=== PATIENT | male | born 1995 | race African-American/Black ===

== ENCOUNTER 2018-10-15 23:52 | Observation (INO) | payer SELFPAY ==
[2018-10-16] MEDS ORDERED: Sodium Chloride 0.9% 250 ML 250 ML ONE (00:22)
[2018-10-16] MEDS ORDERED: cefTRIAXone\\ROCEPHIN 1 GM VIAL ONE (00:22)
[2018-10-16] MEDS ORDERED: methylPREDNISolone Sod Succ/PF 125 MG/2 ML VIAL ONE (00:22)
[2018-10-16] MEDS ORDERED: Sodium Chloride 0.9% 1,000 ML ONE (00:22)
[2018-10-16] MEDS ORDERED: Azithromycin 500 MG VIAL ONE (00:22)
[2018-10-16] MEDS ORDERED: Magnesium Sulfate 2 GM/NS 0.9% 50 ML BAG ONE (00:22)
[2018-10-16 00:27] LABS: #Basophils 0.1 thou/uL (0.0-0.2); #Eosinphils 0.6 thou/uL (0.0-0.7); #Lymphocytes 1.5 thou/uL (1.20-3.40); #Monocytes 1.4 thou/uL (0.11-0.59); #Neutrophils 9.1 thou/uL (1.40-6.50); %Basophils 0.4 % (0.0-1.0); %Eosinophils 4.6 % (0.0-10.0); %Monocytes 10.9 % (0.0-10.0); %Neutrophils 72.2 % (42.0-75.0); Hemoglobin 15.5 g/dL (14.0-18.0); Mean Corpuscular HGB CONC 30.4 g/dL (32.0-36.0); Mean Corpuscular Hemoglobin 27.2 pg (27.0-31.0); Mean Corpuscular Volume 89.5 fL (78.0-98.0); Mean Platelet Volume 9.1 fL (7.4-10.4); Platelet Count 183 thou/uL (130-400); RBC Distribution Width 12.4 % (11.5-14.5); White Blood Cell (WBC) Count 12.6 thou/uL (4.8-10.8)
[2018-10-16 00:43] LABS: Anion Gap 16 mmol/L (10-20); BUN (Urea Nitrogen) 7 mg/dL (8.9-20.6); Calc. Creatinine Clearance 0 mL/min (70-130); Carbon Dioxide 24 mmol/L (22-29); Chloride 106 mmol/L (98-107); Estimated GFR-MDRD 86; Glucose 108 mg/dL (70-105); Potassium 4.2 mmol/L (3.5-5.1); Sodium 142 mmol/L (136-145)
[2018-10-16] MEDS ORDERED: Oseltamivir 75 MG CAP ONE (01:08)
[2018-10-16 02:09] VITALS: BMI 23.9
[2018-10-16] MEDS ORDERED: Albuterol Sulfate 2.5 mg/3 ml Neb NEB PRN ×2 (02:18→06:58)
[2018-10-16 03:48] LABS: Amphetamine Not Detected (NotDetected); Barbiturates Screen Not Detected (NotDetected); Benzodiazepine Screen Not Detected (NotDetected); Cocaine Metabolite Screen Not Detected (NotDetected); Medtox Control Line Valid? VALID (VALID); Methadone Not Detected (NotDetected); Methamphetamine Not Detected (NotDetected); Opiate Screen Not Detected (NotDetected); Oxycodone Screen Not Detected (NotDetected); Phencyclidine (PCP) Not Detected (NotDetected); THC/Cannabinoid Screen Detected (NotDetected); Tricyclic Screen Not Detected (NotDetected)
[2018-10-16 04:11] LABS: Lactic Acid 2.9 mmol/L (0.5-2.2)
[2018-10-16] MEDS: methylPREDNISolone Sod Succ/PF 125 MG/2 ML VIAL IVP SCH ×2 (05:14→11:27)
--- NOTE | 2018-10-16 08:18 | RAD ---
PORTABLE CHEST: DATE: 10/16/2018. PROVIDED CLINICAL HISTORY: Upper respiratory infection. FINDINGS: No comparisons. Cardiac and mediastinal silhouette is within normal limits. Lungs appear clear. No pleural fluid or pneumothorax apparent. IMPRESSION: No evidence for an acute cardiopulmonary process. POS: OFF
[2018-10-16] MEDS ORDERED: Oseltamivir 75 MG CAP PO SCH ×2 (09:00)
[2018-10-16 11:33] VITALS: BP 132/69; TEMP 97.9
[2018-10-16] MEDS ORDERED: Ventolin HFA Inhaler 60 PUFF INHALER INH PRN (13:15)
--- NOTE | 2018-10-16 18:48 | SS ---
DATE OF ADMISSION: 10/16/2018 DATE OF DISCHARGE: 10/16/2018 PRINCIPAL DIAGNOSIS: Asthmatic bronchitis. SECONDARY DIAGNOSIS: Transient hypoxemia which has resolved. COMPLICATIONS: None. ADVERSE REACTIONS: None. PROCEDURES: None. CONSULTATIONS: None. HOSPITAL COURSE: The patient was admitted through the emergency room yesterday after noticing progressively worsening shortness of breath and cough for 2 days. He apparently had sinus congestion about 2 weeks ago, which resolved spontaneously. He did try some NyQuil at this time with no improvement, so presented to the emergency room. His workup was negative for flu. His laboratory values were unremarkable, but he was noted to be hypoxic, and he had felt much better on oxygen via nasal cannula. The ER physician felt it best to admit him overnight for observation and started him on IV Rocephin, IV steroids, and oxygen. This morning, he is saturating about 96% to 97% on 1 L. He is feeling much better. He is up in his bed, eating lunch, and he would like to go home. I examined him, and his lungs still show some expiratory wheezing. Plan is to take him off the oxygen and check an ambulatory pulse ox, and his room air saturation is greater than 90% with ambulation, then he will be discharged to home on Zithromax and oral prednisone as well as Ventolin inhaler. The patient denies any history of similar episodes in the past. He denies any fever or chills. He denies any hemoptysis. PAST MEDICAL HISTORY: None. PAST SURGICAL HISTORY: None. PSYCHOSOCIAL HISTORY: Denies any tobacco or alcohol abuse. He occasionally smokes marijuana. FAMILY HISTORY: No history of COPD or asthma. REVIEW OF SYSTEMS: CARDIOVASCULAR SYSTEM: Denies any chest pain, palpitations, PND, orthopnea, or pedal edema. RESPIRATORY SYSTEM: See History of Presenting Illness. GASTROINTESTINAL SYSTEM: Denies any nausea, vomiting, diarrhea, constipation, hematemesis, melena, or hematochezia. GENITOURINARY SYSTEM: Denies any frequency, urgency, dysuria, or hematuria. CENTRAL NERVOUS SYSTEM: Denies any focal numbness, weakness, or fainting spells. HEENT: Denies any difficulty with speech, vision, hearing, or swallowing. PHYSICAL EXAMINATION: GENERAL: A very pleasant 23-year-old male in no apparent distress. He is sitting upright in bed and eating his lunch. His family is in the room. VITAL SIGNS: He is afebrile. Heart rate is 97.9, temperature 84, and respirations 18. Oxygen saturation 94% on 1 L nasal cannula, occurred at 11:30; when I saw him, it was 97% on 1 L. Blood pressure 132/69. HEENT: Normocephalic, atraumatic. Pupils are equal, reacting to light and accommodation. Extraocular muscles intact. NECK: No JVD, thyromegaly, cervical lymphadenopathy, or throat exudates. No carotid bruits. CARDIOVASCULAR: S1 and S2 plus. Rate and rhythm regular. RESPIRATORY: Normal vesicular breath sounds with scattered expiratory wheezing. No crackles or crepitations. ABDOMEN: Soft, nontender. Bowel sounds in all quadrants. EXTREMITIES: Without cyanosis or clubbing. Peripheral pulses are palpable. EXTREMITIES: Without cyanosis, clubbing, or edema. NERVOUS SYSTEM: A, A, and O x3. Cranial nerves 2 through 12 intact. Motor system examination is grossly nonfocal. LABORATORY VALUES: Show white count of 12.6, H and H 15.5 and 51.1, 72% neutrophils, and 12% lymphocytes. Chemistry shows lactic acid level was up early this morning at 2.9, but clinically, he does not show any signs of sepsis. Sodium 142, potassium 4.2, BUN and creatinine were 7 and 1.26, and calcium was 10. TSH was 0.9222. IMPRESSION: Asthmatic bronchitis with elevated lactic acid of no clinical significance. PLAN: 1. Monitor oxygen saturation on room air. 2. Check ambulatory pulse ox. 3. If ambulatory pulse ox is greater than 90%, we will discharge him home on;. a. Zithromax 250 mg p.o. daily for 4 more days. b. Prednisone 20 mg p.o. b.i.d. with food for 4 more days. c. Albuterol inhaler 2 puffs q.6 p.r.n. 4. He was advised to follow up with his primary care physician in the next couple of days. He is to call us with any questions or concerns. He is to return to the ER if he develops any worsening shortness of breath, fever, chills, chest pain, lightheadedness, or dizziness. He states that he chooses [facility], which is where I am going to send in the prescriptions. Job ID: [id number]
[2018-10-16] MEDS ORDERED: predniSONE 20 MG TAB PO SCH (21:00)
[2018-10-17] MEDS ORDERED: Azithromycin 250 MG TAB PO SCH (06:00)
== END 2018-10-16 14:45 | disposition home or self-care (01) ==
LOC: NAV ERS 23:52 → NAV ACUTE 10-16 01:29
PROVIDERS: ADMIT Internal Medicine; ATTEND Internal Medicine
DX: J45.909 Unspecified asthma, uncomplicated (principal); R09.02 Hypoxemia; R74.0 Nonspecific elevation of levels of transaminase and lactic acid dehydrogenase [LDH]; F12.10 Cannabis abuse, uncomplicated
CPT/HCPCS: 36415; 71045; 80048; 80306; 83605; 84443; 85025; 85379; 87040; 87804; 93005; 96361; 96365; 96367; 96375; 96376; G0378; J0456; J0696; J2930; J3475; J7050; J7620

== ENCOUNTER 2019-04-15 12:04 | Emergency (ER) | payer SELFPAY | END 2019-04-15 12:52 | disposition home or self-care (01) | LOC: NAV ERS 12:04 | DX: J01.90 Acute sinusitis, unspecified (principal) | CPT/HCPCS: 99281 ==

== ENCOUNTER 2022-06-16 20:11 | Emergency (ER) | payer SELFPAY | END 2022-06-16 20:40 | disposition home or self-care (01) | LOC: NAV ERS 20:11 | DX: S83.412A Sprain of medial collateral ligament of left knee, initial encounter (principal); X50.1XXA Overexertion from prolonged static or awkward postures, initial encounter; Y93.39 Activity, other involving climbing, rappelling and jumping off ==